=== PATIENT | female | born 1970 | race Caucasian/White ===

== ENCOUNTER 2017-07-21 12:54 | Emergency (ER) | payer SELFPAY ==
[2017-07-21] MEDS ORDERED: Acetaminophen 500 MG Tab PO ONE (13:20)
--- NOTE | 2017-07-21 13:24 | EDM.PDOC ---
ED HPI GENERAL MEDICAL PROBLEM - General Chief Complaint: Respiratory Problem Stated Complaint: SOB Time Seen by Provider: 07/21/17 12:56 Source of Information: Reports: Patient History Limitations: Reports: No Limitations - History of Present Illness INITIAL COMMENTS - FREE TEXT/NARRATIVE: Presents reporting back pain under the lower rib cage bilateral with a deep breath. The patient is a [id number] smoking history. She states that she coughs all the time. She has had no recent upper respiratory infection, productive cough, sore throat, sinus fullness or fever. Also reports headache. 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: Musculoskeletal History: Reports: None Neurological History: Reports: None Psychiatric History: Reports: None Endocrine/Metabolic History: Reports: None Hematologic History: Reports: None Immunologic History: Reports: None Oncologic (Cancer) History: Reports: None Dermatologic History: Reports: None - Infectious Disease History Infectious Disease History: Reports: Chicken Pox, Shingles - Past Surgical History Head Surgeries/Procedures: Reports: None HEENT Surgical History: Reports: Tonsillectomy Other HEENT Surgeries/Procedures: ear drum surgery GI Surgical History: Reports: None Social & Family History - Family History Family Medical History: Noncontributory Cardiac: Reports: Heart Failure, [place] Other Cardiac Family History: patient stated that his brother in the hospital of a heart attack at age 4545 years old GI: Reports: None OBGYN: Reports: None Musculoskeletal: Reports: None Neurological: Reports: None Psychiatric: Reports: None Endocrine/Metabolic: Reports: Diabetes, Type I Hematologic: Reports: None Immunologic: Reports: None Dermatologic: Reports: None Oncologic: Reports: Leukemia, Lung - Tobacco Use Smoking Status *Q: Current Every Day Smoker Years of Tobacco use: 30 Packs/Tins Daily: 1 Used Tobacco, but Quit: No Second Hand Smoke Exposure: Yes - Caffeine Use Caffeine Use: Reports: Coffee - Alcohol Use Days Per Week of Alcohol Use: 0 - Recreational Drug Use Recreational Drug Use: No ED ROS GENERAL - Review of Systems Review Of Systems: ROS reveals no pertinent complaints other than HPI. ED EXAM, GENERAL - Physical Exam Exam: See Below Exam Limited By: No Limitations General Appearance: Alert, No Apparent Distress Ears: Normal External Exam, Normal TMs Nose: Normal Inspection Throat/Mouth: Normal Inspection, Normal Oropharynx Head: Atraumatic, Normocephalic Neck: Normal Inspection, Supple, Non-Tender. No: Lymphadenopathy (L), Lymphadenopathy (R) Respiratory/Chest: No Respiratory Distress, Lungs Clear, Normal Breath Sounds, No Accessory Muscle Use Cardiovascular: Normal Peripheral Pulses, Regular Rate, Rhythm, No Murmur GI/Abdominal: Soft Back Exam: Normal Inspection, CVA Tenderness (L), CVA Tenderness (R), Paraspinal Tenderness (low thoracic), Other Extremities: Normal Inspection Neurological: Alert, Oriented, Normal Cognition Psychiatric: Normal Affect, Normal Mood Skin Exam: Warm, Dry, Intact, Normal Color, No Rash Lymphatic: No Adenopathy Course - Vital Signs Last Recorded V/S: Last Vital Signs Temp 36.4 C 07/21/17 13:00 Pulse 95 07/21/17 13:00 Resp 18 07/21/17 13:00 BP 130/83 07/21/17 13:00 Pulse Ox 99 07/21/17 13:00 - Orders/Labs/Meds Orders: Active Orders 24 hr Category Date Time Status Chest 2V [CR] Stat Exams 07/21/17 13:18 Ordered CBC WITH AUTO DIFF [HEME] Stat Lab 07/21/17 13:17 Ordered CRP [C-REACTIVE PROTEIN] [CHEM] Stat Lab 07/21/17 13:17 Ordered Departure - Departure Time of Disposition: 14:34 Disposition: Home, Self-Care 01 Condition: Good Clinical Impression: Rib pain - Discharge Information Referrals: PCP,None [Primary Care Provider] - [facility] [Outside] [facility] [Outside] Additional Instructions: 1. Aleve 2 am and 2pm or Ibuprofen 2-3 tabs three times daily for next three days then as needed. 2. You must follow up in primary care. Your chronic dry cough is likely due to the BP medication--Lisinopril, or from smoking. Your blood pressure medication may need to be changed. 3. STOP smoking. Check with your primary provider for assistance. - My Orders Last 24 Hours: My Active Orders 07/21/17 13:17 CBC WITH AUTO DIFF [HEME] Stat CRP [C-REACTIVE PROTEIN] [CHEM] Stat 07/21/17 13:18 Chest 2V [CR] Stat - Assessment/Plan Last 24 Hours: My Active Orders 07/21/17 13:17 CBC WITH AUTO DIFF [HEME] Stat CRP [C-REACTIVE PROTEIN] [CHEM] Stat 07/21/17 13:18 Chest 2V [CR] Stat
--- NOTE | 2017-07-21 14:11 | CR ---
EXAMINATION: Two-view chest (PA and Lateral views). HISTORY: Shortness of breath. FINDINGS: The trachea is midline. The cardiomediastinal silhouette is within normal limits. No pulmonary infilt rates, effusions or pneumothorax. Osseous structures appear unremarkable. IMPRESSION: No acute cardiopulmonary process.
[2017-07-21] MEDS ORDERED: Ketorolac 60 MG/2 ML SDV IM ONE (14:33)
[2017-07-21 16:22] VITALS: BP 116/83
== END 2017-07-21 15:10 | disposition home or self-care (01) ==
LOC: MW.ED 12:54
DX: R07.81 Pleurodynia (principal); F17.210 Nicotine dependence, cigarettes, uncomplicated
CPT/HCPCS: 36415; 71046; 81001; 85025; 86140; 96372; 99284; A9270; J1885; 99283

== ENCOUNTER 2017-07-22 17:02 | Emergency (ER) | payer SELFPAY ==
[2017-07-22] MEDS ORDERED: Sodium Chloride 0.9% 500 ML IV SCH (17:30)
--- NOTE | 2017-07-22 17:42 | EDM.PDOC ---
ED HPI GENERAL MEDICAL PROBLEM - General Chief Complaint: Gastrointestinal Problem Stated Complaint: VOMITING Time Seen by Provider: 07/22/17 17:13 Source of Information: Reports: Patient History Limitations: Reports: No Limitations - History of Present Illness INITIAL COMMENTS - FREE TEXT/NARRATIVE: HISTORY AND PHYSICAL: History of present illness: Patient is a 47-year-old female who presents to the emergency room today with complaints of vomiting, hyperventilation and numbness and tingling to her hands bilaterally. Patient was seen on 07/21/2017 for some chest/back and rib discomfort. She had a chest x-ray which was normal. She states since her discharge she has felt anxious and has had numbness and tingling which is progressively gotten worse to bilateral hands. She has "vomited 15 times" throughout the day and is unable to keep any fluids down. Patient appears anxious. She states that she is scared she is having a "heart attack or stroke". She denies any recent head injury or trauma. Denies any change in vision, headache. She denies any fever, chills, chest pain, abdominal pain, diarrhea or constipation. Review of systems: As per history of present illness and below otherwise all systems reviewed and negative. Past medical history: As per history of present illness and as reviewed below otherwise noncontributory. Surgical history: As per history of present illness and as reviewed below otherwise noncontributory. Social history: No reported history of drug or alcohol abuse. Family history: As per history of present illness and as reviewed below otherwise noncontributory. Physical exam: General: Well-developed and well-nourished 47-year-old female. Alert and oriented. Nontoxic appearing, mildly anxious, but in no acute distress. HEENT: Atraumatic, normocephalic, pupils equal and reactive bilaterally, negative for conjunctival pallor or scleral icterus, mucous membranes dry/tacky , throat clear, neck supple, nontender, trachea midline. No drooling or trismus noted. No meningeal signs Lungs: Clear to auscultation, breath sounds equal bilaterally, chest nontender. Heart: S1S2, regular rate and rhythm without overt murmur Abdomen: Soft, nondistended, nontender. Negative for masses or hepatosplenomegaly. Negative for costovertebral tenderness. Pelvis: Stable nontender. Genitourinary: Deferred. Rectal: Deferred. Skin: Intact, warm, dry. No lesions or rashes noted. Extremities: Atraumatic, moves all extremities per self without difficulty or deficits. Bilateral hand contractures noted, she is negative for cords or calf pain. Strong radial/pedial pulses bilaterally. Neurovascular unremarkable. Neuro: Awake, alert, oriented. Cranial nerves II through XII unremarkable. Cerebellum unremarkable. Motor and sensory unremarkable throughout. Exam nonfocal. Notes: Deep/Slow controlled breathing coaching was done by nursing staff as she is hyperventilating and does have some hand contractures bilaterally. Patient is willing to do routine lab work which I will include a troponin and EKG; as she just had a chest x-ray done yesterday I do not feel that is necessary. Since she has no neurological symptoms and no recent head injury, a head CT is not warranted at this time. GCS 15, Normal Stroke Scale (negative). WBC 15 with a potassium of 3.3. I do feel that this is due to her dehydration from vomiting. She states her vomiting is controlled at this time and she feels much improved. She still does have a harsh cough noted (she is long standing smoker), due to the white count came been a treat this as an atypical pneumonia. Chest x-ray was not obtained but she did have one yesterday which is normal. Prescription for Zofran was given and we did discuss signs and symptoms that would prompt her to come back to the emergency room. Encouraged her to increase her food in potassium. Supportive care measures were reviewed. She voices understanding and is agreeable to plan of care. She denies any further questions at this time. Diagnostics: ABC, CMP, troponin, EKG Therapeutics: LR, Melfran, Ativan Impression: Nausea and Vomiting Anxiety Bronchitis Plan: 1. Please take the antibiotic as prescribed for the bronchitis. 2. [place] diet, advance as tolerated. May use the Zofran as needed for nausea management. Please all frequent sips of fluids to prevent dehydration. 3. Follow-up with your primary caregiver in the next 1-2 days. Return to the ED as needed and as discussed. Definitive disposition and diagnosis as appropriate pending reevaluation and review of above. 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: Musculoskeletal History: Reports: None Neurological History: Reports: None Psychiatric History: Reports: None Endocrine/Metabolic History: Reports: None Hematologic History: Reports: None Immunologic History: Reports: None Oncologic (Cancer) History: Reports: None Dermatologic History: Reports: None - Infectious Disease History Infectious Disease History: Reports: Chicken Pox - Past Surgical History Head Surgeries/Procedures: Reports: None HEENT Surgical History: Reports: Tonsillectomy Other HEENT Surgeries/Procedures: ear drum surgery GI Surgical History: Reports: None Social & Family History - Family History Family Medical History: Noncontributory Cardiac: Reports: Heart Failure, [place] Other Cardiac Family History: patient stated that his brother in the hospital of a heart attack at age 4545 years old GI: Reports: None OBGYN: Reports: None Musculoskeletal: Reports: None Neurological: Reports: None Psychiatric: Reports: None Endocrine/Metabolic: Reports: Diabetes, Type I Hematologic: Reports: None Immunologic: Reports: None Dermatologic: Reports: None Oncologic: Reports: Leukemia, Lung - Tobacco Use Smoking Status *Q: Current Every Day Smoker Years of Tobacco use: 30 Packs/Tins Daily: 1 Used Tobacco, but Quit: No Second Hand Smoke Exposure: Yes - Caffeine Use Caffeine Use: Reports: Coffee, Soda - Alcohol Use Days Per Week of Alcohol Use: 0 - Recreational Drug Use Recreational Drug Use: No ED ROS GENERAL - Review of Systems Review Of Systems: ROS reveals no pertinent complaints other than HPI. ED EXAM, GI/ABD - Physical Exam Exam: See Below (See dictation) Course - Vital Signs Last Recorded V/S: Last Vital Signs Temp 97.4 F 07/22/17 17:25 Pulse 98 07/22/17 19:13 Resp 18 07/22/17 19:13 BP 158/93 H 07/22/17 19:13 Pulse Ox 98 07/22/17 19:13 - Orders/Labs/Meds Orders: Active Orders 24 hr Category Date Time Status UA W/MICROSCOPIC [URIN] Stat Lab 07/22/17 17:18 Ordered Labs: Laboratory Tests 07/22/17 07/22/17 07/22/17 Range/Units 18:00 18:00 18:00 WBC 15.29 H (4.0-11.0) K/uL RBC 5.23 (4.30-5.90) M/uL Hgb 16.3 H (12.0-16.0) g/dL Hct 45.9 (36.0-46.0) % MCV 87.8 (80.0-98.0) fL MCH 31.2 (27.0-32.0) pg MCHC 35.5 (31.0-37.0) g/dL RDW Std Deviation 40.5 (28.0-62.0) fl RDW Coeff of Leandro 13 (11.0-15.0) % Plt Count 339 (150-400) K/uL MPV 8.80 (7.40-12.00) fL Neut % (Auto) 80.8 H (48.0-80.0) % Lymph % (Auto) 17.1 (16.0-40.0) % [place] % (Auto) 2.0 (0.0-15.0) % Eos % (Auto) 0.0 (0.0-7.0) % Baso % (Auto) 0.1 (0.0-1.5) % Neut # (Auto) 12.4 H (1.4-5.7) K/uL Lymph # (Auto) 2.6 H (0.6-2.4) K/uL [place] # (Auto) 0.3 (0.0-0.8) K/uL Eos # (Auto) 0.0 (0.0-0.7) K/uL Baso # (Auto) 0.0 (0.0-0.1) K/uL Nucleated RBC % 0.0 /100WBC Nucleated RBCs # 0 K/uL Sodium 135 L (136-145) mmol/L Potassium 3.3 L (3.5-5.1) mmol/L Chloride 99 (98-107) mmol/L Carbon Dioxide 21.0 (21.0-32.0) mmol/L BUN 21 H (7.0-18.0) mg/dL Creatinine 1.1 H (0.6-1.0) mg/dL Est Cr Clr Drug Dosing 50.00 mL/min Estimated GFR (MDRD) 53.2 ml/min Glucose 168 H (74-106) mg/dL Calcium 10.0 (8.5-10.1) mg/dL Total Bilirubin 0.4 (0.2-1.0) mg/dL AST 14 L (15-37) IU/L ALT 18 (14-63) IU/L Alkaline Phosphatase 77 (46-116) U/L Troponin I < 0.050 (0.000-0.056) ng/mL Total Protein 8.5 H (6.4-8.2) g/dL Albumin 4.4 (3.4-5.0) g/dL Globulin 4.1 H (2.0-3.5) g/dL Albumin/Globulin Ratio 1.1 L (1.3-2.8) Meds: Medications Discontinued Medications Generic Name Dose Route Start Last Admin Trade Name Freq PRN Reason Stop Dose Admin Sodium Chloride 500 mls @ 999 mls/hr 07/22/17 17:30 Normal Saline IV STAT RUMA Lactated Ringer's 1,000 mls @ 999 mls/hr 07/22/17 17:45 07/22/17 17:55 Ringers, Lactated IV 999 mls/hr ASDIRECTED RUMA Administration Lorazepam 0.5 mg 07/22/17 17:42 07/22/17 17:55 Ativan IVPUSH 07/22/17 17:43 0.5 mg ONETIME ONE Administration Ondansetron HCl 4 mg 07/22/17 17:18 07/22/17 17:55 Zofran IVPUSH 07/22/17 17:19 4 mg ONETIME ONE Administration Departure - Departure Time of Disposition: 19:03 Disposition: Home, Self-Care 01 Clinical Impression: Nausea & vomiting, Anxiety, Bronchitis - Discharge Information Instructions: Panic Attacks, [id number], Acute Bronchitis, Adult, Easy-to- Read, Nausea and Vomiting, Adult Referrals: PCP,None [Primary Care Provider] - Forms: ED Department Discharge Additional Instructions: The following information is given to patients seen in the emergency department who are being discharged to home. This information is to outline your options for follow-up care. We provide all patients seen in our emergency department with a follow-up referral. The need for follow-up, as well as the timing and circumstances, are variable depending upon the specifics of your emergency department visit. If you don't have a primary care physician on staff, we will provide you with a referral. We always advise you to contact your personal physician following an emergency department visit to inform them of the circumstance of the visit and for follow-up with them and/or the need for any referrals to a consulting specialist. The emergency department will also refer you to a specialist when appropriate. This referral assures that you have the opportunity for follow-up care with a specialist. All of these measure are taken in an effort to provide you with optimal care, which includes your follow-up. Under all circumstances we always encourage you to contact your private physician who remains a resource for coordinating your care. When calling for follow-up care, please make the office aware that this follow-up is from your recent emergency room visit. If for any reason you are refused follow-up, please contact the [facility] Emergency Department at and asked to speak to the emergency department charge nurse. [facility] [address] [place], [place] [id number] 1. Please take the antibiotic as prescribed for the bronchitis. 2. [place] diet, advance as tolerated. May use the Zofran as needed for nausea management. Please all frequent sips of fluids to prevent dehydration. 3. Follow-up with your primary caregiver in the next 1-2 days. Return to the ED as needed and as discussed. - My Orders Last 24 Hours: My Active Orders 07/22/17 17:18 UA W/MICROSCOPIC [URIN] Stat - Assessment/Plan Last 24 Hours: My Active Orders 07/22/17 17:18 UA W/MICROSCOPIC [URIN] Stat
[2017-07-22] MEDS: Lactated Ringers 1,000 ML IV SCH (17:55)
[2017-07-22] MEDS: Ondansetron 4 MG/2 ML SDV IVPUSH ONE (17:55)
[2017-07-22] MEDS: LORazepam 2 MG/ML SDV IVPUSH ONE (17:55)
[2017-07-22 19:21] VITALS: BP 158/93
== END 2017-07-22 19:13 | disposition home or self-care (01) ==
LOC: MW.ED 17:02
DX: R11.2 Nausea with vomiting, unspecified (principal); F41.9 Anxiety disorder, unspecified; J40 Bronchitis, not specified as acute or chronic; F17.210 Nicotine dependence, cigarettes, uncomplicated; Z79.899 Other long term (current) drug therapy
CPT/HCPCS: 80053; 84484; 85025; J2060; J2405; J7120; 99283

== ENCOUNTER 2020-06-29 07:16 | Day surgery (SDC) | payer MEDICAID ==
[~2020-06-29 07:16] MED LIST: Lactated Ringers 1,000 ML IV SCH
[2020-06-29] MEDS ORDERED: Midazolam 1 MG/ML 2 ML SDV ONE (07:42)
[2020-06-29] MEDS ORDERED: Propofol 200 MG/20 ML SDV ONE (07:42)
--- NOTE | 2020-06-29 07:49 | PCM.PREANE ---
Preanesthetic Assessment - Anesthesia/Transfusion/Family Hx Anesthesia History: Prior Anesthesia Without Reaction Family History of Anesthesia Reaction: No Transfusion History: No Prior Transfusion(s) Intubation History: Unknown - Review of Systems General: No Symptoms Pulmonary: No Symptoms Cardiovascular: No Symptoms Gastrointestinal: Abdominal Pain Neurological: No Symptoms Other: Reports: None - Physical Assessment Vital Signs: Last Vital Signs Temp 36.2 C 06/29/20 07:29 Pulse 86 06/29/20 07:29 Resp 15 06/29/20 07:29 BP 125/81 06/29/20 07:29 Pulse Ox 96 06/29/20 07:29 Height: 5 ft 2 in Weight: 78.018 kg ASA Class: 2 Mental Status: Alert & Oriented x3 Airway Class: Mallampati = 2 Dentition: Reports: Normal Dentition Thyro-Mental Finger Breadths: 3 Mouth Opening Finger Breadths: 2 ROM/Head Extension: Full Lungs: Clear to Auscultation, Normal Respiratory Effort Cardiovascular: Regular Rate, Regular Rhythm - Allergies Allergies/Adverse Reactions: Allergies Allergy/AdvReac Type Severity Reaction Status Date / Time Penicillins Allergy Hives Verified 06/26/20 08:32 - Blood Blood Available: No - Anesthesia Plan Pre-Op Medication Ordered: None - Acknowledgements Anesthesia Type Planned: MAC Pt an Appropriate Candidate for the Planned Anesthesia: Yes Alternatives and Risks of Anesthesia Discussed w Pt/Guardian: Yes Pt/Guardian Understands and Agrees with Anesthesia Plan: Yes PreAnesthesia Questionnaire HEENT History: Reports: Other (See Below) Other HEENT History: wears glasses/contacts Cardiovascular History: Reports: High Cholesterol, Hypertension Respiratory History: Reports: None Other Respiratory History: smoking hx for 30+years, currently smokes 1 PPD, Gastrointestinal History: Reports: GERD Other Gastrointestinal History: intermittent abd pain, occasional heartburn Genitourinary History: Reports: None 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: Musculoskeletal History: Reports: None Other Musculoskeletal History: hx fx arm Neurological History: Reports: None Psychiatric History: Reports: Anxiety Endocrine/Metabolic History: Reports: Obesity/BMI 30+ (BMI 31.5), Other (See [place]) (prediabetes ?) Hematologic History: Reports: None Immunologic History: Reports: None Oncologic (Cancer) History: Reports: None Dermatologic History: Reports: None - Infectious Disease History Infectious Disease History: Reports: Chicken Pox - Past Surgical History HEENT Surgical History: Reports: Tonsillectomy Other HEENT Surgeries/Procedures: ear drum surgery (myringoplasty) Female Surgical History: Reports: LEEP - SUBSTANCE USE Tobacco Use Status *Q: Current Every Day Tobacco User (1ppd) Tobacco Use Within Last Twelve Months: Cigarettes - HOME MEDS Home Medications: Home Meds Lisinopril/Hydrochlorothiazide [Lisinopril-Hctz 20-25 mg Tab] 1 tab PO DAILY 06/26/20 [History] - CURRENT (IN HOUSE) MEDS Current Meds: Current Medications Lactated Ringer's (Ringers, Lactated) 1,000 mls @ 125 mls/hr IV ASDIRECTED RUMA
--- NOTE | 2020-06-29 09:17 | PCM.OPNOTE ---
- General Post-Op/Procedure Note Date of Surgery/Procedure: 06/29/20 Operative Procedure(s): egd w bx. colonoscopy w bx Findings: see [id number] Pre Op Diagnosis: abd pain and hpylori infection hx Post-Op Diagnosis: Same Anesthesia Technique: Moderate Sedation Primary Surgeon: Jed Lauren Complications: None Condition: Good
[2020-06-29 09:41] VITALS: BP 120/82; PULSE 86
--- NOTE | 2020-06-29 09:45 | PCM.POSTAN ---
POST ANESTHESIA ASSESSMENT - MENTAL STATUS Mental Status: Alert, Oriented - VITAL SIGNS Vital Signs: Last Vital Signs Temp 36.4 C 06/29/20 09:32 Pulse 86 06/29/20 09:32 Resp 14 06/29/20 09:32 BP 120/82 06/29/20 09:32 Pulse Ox 95 06/29/20 09:32 - RESPIRATORY Respiratory Status: Respiratory Rate WNL, Airway Patent, O2 Saturation Stable - CARDIOVASCULAR CV Status: Pulse Rate WNL, Blood Pressure Stable - GASTROINTESTINAL GI Status: No Symptoms - PAIN Pain Score: 0 - POST OP HYDRATION Hydration Status: Adequate & Stable - OBSERVATIONS Free Text/Narrative:: No anesthesia problems
--- NOTE | 2020-06-29 09:51 | PCM48HPAN ---
Post Anesthesia Note - EVALUATION WITHIN 48HRS OF ANESTHETIC Vital Signs in Normal Range: Yes Patient Participated in Evaluation: Yes Respiratory Function Stable: Yes Airway Patent: Yes Cardiovascular Function Stable: Yes Hydration Status Stable: Yes Pain Control Satisfactory: Yes Nausea and Vomiting Control Satisfactory: Yes Mental Status Recovered: Yes Vital Signs: Last Vital Signs Temp 36.4 C 06/29/20 09:32 Pulse 86 06/29/20 09:32 Resp 14 06/29/20 09:32 BP 120/82 06/29/20 09:32 Pulse Ox 95 06/29/20 09:32 - COMMENTS/OBSERVATIONS Free Text/Narrative:: No anesthesia problems
--- NOTE | 2020-06-29 11:53 | OR ---
SURGEON: Jed Lauren MD DATE OF PROCEDURE: 06/29/2020 PREOPERATIVE DIAGNOSES: Abdominal pain and acid reflux. POSTOPERATIVE DIAGNOSES: Abdominal pain and acid reflux. PROCEDURES PERFORMED: Esophagogastroduodenoscopy with biopsy and colonoscopy with random biopsy. DESCRIPTION OF PROCEDURE: EGD: The patient was taken to the endoscopy room, and with the [employer]CTION[employer]PPLY SUPERVISOR, Diprivan was administered. A well-lubricated EGD scope was gently inserted through the oropharynx, down the esophagus, passing through the gastroesophageal junction, into the stomach. The mucosa was examined upon the passage. Any etiology will be noted. Once in the stomach, we continued to advance to the distal antrum, passed through the pylorus into the second portion of the duodenum. Again, the mucosa was examined for any abnormality and etiology. The scope was then retrieved back to the stomach and then retroflexed to look at the fundus of the stomach. If a biopsy was indicated, we will biopsy the antrum, body, and gastroesophageal junction. The air will be sucked out while the scope is retrieved to reduce the patient's discomfort. The patient tolerated the procedure well. There were no intraoperative complications. Dr. Lauren was present through the whole procedure. Prior to surgery, a time-out had been called, the patient identified, procedure identified and antibiotic administered. The patient was taken to the endoscopy room. A time out was called, patient identified, and procedure identified. Diprivan was then administrated. Patient went from awake to sleep, hearing doctor talking or door closing is normal. Perineum inspection and digital examination were then performed. A well- lubricated colonoscope was gently inserted through the rectum, advanced past the rectosigmoid junction, the descending colon, splenic flexure, transverse colon, hepatic flexure, ascending colon, arrived to the cecum. Cecum was identified as dictated in the finding. Then the scope was carefully withdrawn while attention was paid to the mucosal surface for any abnormality. Air will be sucked out during the scope withdrawal. At the rectum, retroflexed to examine any rectal diseases, fistula or hemorrhoids. During mucosal examination, abnormality or polyp was noted; picture taken and biopsy performed. Patient tolerated procedure well. There were no intraoperative complications, and Dr. Lauren was present throughout the whole procedure. FINDINGS: EGD findings: 1. The patient is easily sedated with [employer] SUPERVISOR and Diprivan, the patient is soundly snoring. 2. Oropharynx and proximal esophagus are free of disease. GE junction usually is at 40. However, at distance 31 cm, at about 4 o'clock position, there is a 5 mm growth. It looked a little bit like cauliflower. It was biopsied and sent for pathology. GE junction at 40 shows flame-like salmon- colored change and with one area as an ulcer. The patient has esophagitis. Stomach rugae are normal in appearance. There is no food, bile, or blood observed. Antrum looks fine. Duodenum looks fine. Retroflexed look at the fundus of stomach, there is no hiatal hernia. Biopsy done at antrum, body, GE junction at 40 and sucked out the gas while scope pulling out and also biopsy at 31. The patient would probably need to have a repeat EGD to examine this area at 31 cm. Colonoscopy findings: 1. The patient is easily sedated with [employer] SUPERVISOR and Diprivan, the patient is soundly snoring. 2. Bowel prep is average to a little below average. Large amount of opaque yellow-green stool compromised the study. Fortunately, they are easy to be irrigated away. Colon is rather straightforward. Cecum indicated by ileocecal fold, one-to-one indentation, appendiceal orifice. ScopeGuide is pointing south. Mucosa examined upon scope pulling out with constant irrigation. The patient does not have diverticulosis, polyp, mass, growth, inflammation, stricture, AV malformation, bleeding, none of those. Stool is yellow in color. The patient does not have external hemorrhoids. The patient has minimal internal hemorrhoids. Random biopsy done for abdominal pain. The patient would benefit from repeat colonoscopy in 10 years from today or if clinically indicated otherwise or the pathology of the biopsy indicated otherwise. MILENA / YOUSUF /[id number]
== END 2020-06-29 10:00 | disposition home or self-care (01) ==
LOC: MW.SDS 07:16
PROVIDERS: ATTEND Surgery
DX: D13.0 Benign neoplasm of esophagus (principal); K64.8 Other hemorrhoids; K25.9 Gastric ulcer, unspecified as acute or chronic, without hemorrhage or perforation; K21.00 Gastro-esophageal reflux disease with esophagitis, without bleeding; E78.5 Hyperlipidemia, unspecified; F17.200 Nicotine dependence, unspecified, uncomplicated; F17.210 Nicotine dependence, cigarettes, uncomplicated; E66.9 Obesity, unspecified; I10 Essential (primary) hypertension; E78.00 Pure hypercholesterolemia, unspecified; Z88.0 Allergy status to penicillin; Z79.82 Long term (current) use of aspirin; Z79.899 Other long term (current) drug therapy; Z98.890 Other specified postprocedural states; Z68.31 Body mass index [BMI] 31.0-31.9, adult
CPT/HCPCS: 43239; 45380; 88305; 88312; J2250; J2704; J7120; 00813

== ENCOUNTER 2020-07-27 09:15 | Day surgery (SDC) | payer MEDICAID ==
[~2020-07-27 09:15] MED LIST changes: +Bupivacaine 25%/EPINEPHrine/PF 0 ML ONE; +Glycopyrrolate 0.2 MG/ML SDV ONE; +Ketorolac 30 MG/ML SDV ONE; -Lactated Ringers 1,000 ML IV SCH; +Lidocaine 2% 5 ML SDV ONE; +Midazolam 1 MG/ML 2 ML SDV ONE; +Octyl 2-Cyanoacrylate 1 Tube ONE; +Ondansetron 4 MG/2 ML SDV ONE; +Propofol 200 MG/20 ML SDV ONE; +Rocuronium Bromide 50 MG/5 ML Syringe ONE; +Sugammadex Sodium 200 MG/2 ML VIAL ONE; +fentaNYL 250 MCG/5 ML SDV ONE
[2020-07-27] MEDS ORDERED: Sodium Chloride 0.9% 0 ML ONE (09:31)
[2020-07-27] MEDS ORDERED: ceFAZolin 1 GM Vial ONE (09:31)
[2020-07-27 09:34] VITALS: BP 115/74; PULSE 83
[2020-07-27] MEDS ORDERED: Acetaminophen 1,000 MG in Premix Bag 1 BAG IV PRN (09:35)
[2020-07-27] MEDS ORDERED: fentaNYL 100 MCG/2 ML SDV IVPUSH PRN (09:35)
[2020-07-27] MEDS ORDERED: Lactated Ringers 1,000 ML IV SCH (09:45)
== END 2020-07-27 10:15 | disposition home or self-care (01) ==
LOC: MW.SDS 09:15
PROVIDERS: ATTEND Surgery
DX: K80.20 Calculus of gallbladder without cholecystitis without obstruction (principal); Z53.09 Procedure and treatment not carried out because of other contraindication; F17.210 Nicotine dependence, cigarettes, uncomplicated; K21.9 Gastro-esophageal reflux disease without esophagitis; I10 Essential (primary) hypertension; E78.00 Pure hypercholesterolemia, unspecified; E66.9 Obesity, unspecified; Z88.0 Allergy status to penicillin; Z68.31 Body mass index [BMI] 31.0-31.9, adult
CPT/HCPCS: 81025; A9270-GY; J0690; J1885; J2250; J2405; J2704; J3010; J3490; J7120

== ENCOUNTER 2020-09-05 07:26 | Emergency (ER) | payer MEDICAID ==
[2020-09-05 07:38] VITALS: BP 105/64; PULSE 80
[2020-09-05] MEDS ORDERED: Bacitracin Oint 1 GM U/D Packet TOP ONE (08:00)
[2020-09-05] MEDS ORDERED: Ketorolac 30 MG/ML SDV IM STA (08:00)
[2020-09-05] MEDS ORDERED: Lidocaine 5% Oint 35.44 GM Tube TOP STA (08:00)
[2020-09-05] MEDS ORDERED: Bacitracin Oint 28.35 GM Tube TOP ONE (08:09)
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
== END 2020-09-05 08:40 | disposition home or self-care (01) ==
LOC: MW.ED 07:26
DX: T23.252A Burn of second degree of left palm, initial encounter (principal); E78.00 Pure hypercholesterolemia, unspecified; I10 Essential (primary) hypertension; E66.9 Obesity, unspecified; Z68.31 Body mass index [BMI] 31.0-31.9, adult; Z72.0 Tobacco use; Z88.0 Allergy status to penicillin; Z79.899 Other long term (current) drug therapy; X08.8XXA Exposure to other specified smoke, fire and flames, initial encounter
CPT/HCPCS: 16020; 96372; 99283; A9270; J1885